=== PATIENT | male | born 1970 | race Caucasian/White ===

== ENCOUNTER 2019-07-02 07:01 | Day surgery (SDC) | payer OTHER ==
[2019-07-02] MEDS ORDERED: MIDAZOLAM 1 MG/ML 2 ML INJ (08:05)
[2019-07-02] MEDS ORDERED: PROPOFOL 20 ML (08:05)
[2019-07-02] MEDS ORDERED: LIDOCAINE 1% (MDV) 20 ML INJ (08:05)
== END 2019-07-02 14:21 | disposition home or self-care (01) ==
LOC: GIL 07:01
DX: Z12.11 Encounter for screening for malignant neoplasm of colon (principal); D12.4 Benign neoplasm of descending colon; K64.8 Other hemorrhoids; K64.4 Residual hemorrhoidal skin tags; J45.909 Unspecified asthma, uncomplicated
CPT/HCPCS: 45380